=== PATIENT | male | born 1970 | race Two or more races ===

== ENCOUNTER 2023-02-04 16:44 | Emergency (ER) | payer SELFPAY ==
[~2023-02-04] VITALS: Ht 175.3 cm; Wt 150.0 kg
[2023-02-04 17:22] LABS: Basophils # (auto) 0.2 10 ^3/uL (0-0.2); Basophils % (auto) 1.9 % (0.0-2.0); Eosinophils # (auto) 0.3 10 ^3/uL (0-0.8); Eosinophils % (auto) 2.7 % (0.0-7.0); Hemoglobin 13.9 g/dL (13.5-17.5); Lymphocytes # (auto) 2.8 10 ^3/uL (0.4-5.4); Lymphocytes % (auto) 23.3 % (10.0-50.0); Mean Corpuscular Hemoglobin 29.8 pg (28.0-32.0); Mean Corpuscular Volume 87.6 fL (80.0-100.0); Monocytes # (auto) 1.2 10 ^3/uL (0-1.3); Monocytes % (auto) 10.1 % (0.0-12.0); Neutrophils # (auto) 7.5 10 ^3/uL (1.6-8.6); Nucleated Red Blood Cells % 0.2 %; Red Blood Cells 4.68 10^6/uL (4.5-5.90); White Blood Cell 12.1 10^3/uL (4.4-10.8)
[2023-02-04 17:41] LABS: Albumin 3.6 g/dL (3.4-5.0); Calcium 8.8 mg/dL (8.5-10.1); Potassium 3.9 mmol/L (3.5-5.1)
[2023-02-04 17:44] LABS: Bilirubin, Total 0.5 mg/dL (0.2-1.0); Total Protein 7.6 g/dL (6.4-8.2)
[2023-02-04 19:31] LABS: INR 0.93 (0.9-1.15); Partial Thromboplastin Time 29.3 sec (24.6-33.4)
[2023-02-04] MEDS ORDERED: DOXY-286 PO (20:25)
[2023-02-04] MEDS ORDERED: ALBUAER3 IN (20:25)
[2023-02-04] MEDS ORDERED: DOXYCYCLINE 100 MG TAB/CAP PO ONE (20:30)
[2023-02-04 21:02] VITALS: BP 147/84
== END 2023-02-04 21:05 | disposition home or self-care (01) ==
LOC: ER 16:44
DX: J18.9 Pneumonia, unspecified organism (principal); L03.114 Cellulitis of left upper limb
CPT/HCPCS: 36415; 71046; 80053; 83605; 83690; 83880; 84484; 85025; 85379; 85610; 85730; 87040; 93005